=== PATIENT | male | born 1970 | race Caucasian/White ===

== ENCOUNTER → 2020-09-30 | Outpatient (CLI) | payer OTHER ==
[~2020-09-30] MED LIST: ACETAMINOPHEN-1 EAC1 PO; ATACAND16 MG PO; COQ-10100 MG PO; DESYREL150 MG PO; LASIX 40 MG TAB40 MG PO; LISINOPRIL-HCT1 EAC2; LISINOPRIL10 MG; OMEPRAZOLE40 MG PO; QVAR REDIHALE10.6 G1 INH; ROBAXIN500 MG PO; SPIRONOLACTONE25 MG PO; VALERIAN ROOT100 MG; VIAGRA50 MG PO
== END ==
LOC: M.MRI 08:09
PROVIDERS: ATTEND Nurse Practitioner Family
DX: R53.83 Other fatigue (principal); M62.81 Muscle weakness (generalized); Z82.0 Family history of epilepsy and other diseases of the nervous system

== ENCOUNTER → 2020-10-06 | Outpatient (CLI) | payer OTHER ==
[~2020-10-06] MED LIST changes: -ATACAND16 MG PO; -COQ-10100 MG PO; -DESYREL150 MG PO; -LASIX 40 MG TAB40 MG PO; -OMEPRAZOLE40 MG PO; -QVAR REDIHALE10.6 G1 INH; -SPIRONOLACTONE25 MG PO; -VIAGRA50 MG PO
[2020-10-06 11:46] LABS: ABSOLUTE BASOPHILS 0.1 thou/uL (0.0-0.2); ABSOLUTE EOSINOPHILS 0.2 thou/uL (0.0-0.7); ABSOLUTE MONOCYTES 0.7 thou/uL (0.0-1.2); ABSOLUTE NEUTROPHILS 5.4 thou/uL (1.6-8.1); BASOPHILS 1.5 %; EOSINOPHILS 2.8 %; HEMATOCRIT 44.7 % (42.0-52.0); HEMOGLOBIN 15.7 gm/dL (14.0-18.0); LYMPHOCYTES 23.4 %; MCH 32.3 pg (26.0-34.0); MONOCYTES 8.3 %; MPV 9.6 fl. (7.2-11.1); NUCLEATED RBCS 0 /100WBC; PLATELET COUNT* 177 thou/uL (150-400); RBC 4.85 mil/uL (4.50-6.00); WBC 8.5 thou/uL (4.0-11.0)
[2020-10-06 12:08] LABS: ALBUMIN 3.8 g/dL (3.4-5.0); ALKALINE PHOSPHATASE 96 U/L (46-116); ANION GAP 7 mmol/L (7-16); BUN 16 mg/dL (7-18); CALCIUM 8.8 mg/dL (8.5-10.1); CHLORIDE 102 mmol/L (98-107); CHOLESTEROL 174 mg/dL (<200); CO2 31 mmol/L (21-32); CREATININE 1.1 mg/dL (0.6-1.3); GLUCOSE 123 mg/dL (70-99); HDL CHOLESTEROL 37 mg/dL (>40); LDL CHOLESTEROL 97 mg/dL (<100); MAGNESIUM 1.9 mg/dL (1.8-2.4); POTASSIUM 3.7 mmol/L (3.5-5.1); SGOT 20 U/L (15-37); SGPT 57 U/L (30-65); SODIUM 140 mmol/L (136-145); TC:HDL 4.7 Ratio (Not establshd); TOTAL BILIRUBIN 0.5 mg/dL (<0.1-1.0); TOTAL PROTEIN 7.9 g/dL (6.4-8.2); TRIGLYCERIDE 203 mg/dL (<150); VLDL 41 mg/dL (<40)
[2020-10-06 12:24] LABS: SERUM ASSESSMENT Clear
[2020-10-06 21:05] LABS: T3 UPTAKE 23 % (24-39)
== END ==
LOC: M.LAB 11:21
PROVIDERS: ATTEND Internal Medicine
DX: R06.02 Shortness of breath (principal); R26.2 Difficulty in walking, not elsewhere classified; E66.01 Morbid (severe) obesity due to excess calories; I10 Essential (primary) hypertension; R29.898 Other symptoms and signs involving the musculoskeletal system

== ENCOUNTER → 2020-12-30 | Outpatient (CLI) | payer OTHER ==
[~2020-12-30] MED LIST changes: +ATACAND16 MG PO; +COQ-10100 MG PO; +DESYREL150 MG PO; +LASIX 40 MG TAB40 MG PO; +OMEPRAZOLE40 MG PO; +QVAR REDIHALE10.6 G1 INH; +SPIRONOLACTONE25 MG PO; +VIAGRA50 MG PO
== END ==
LOC: M.RAD 10:26
PROVIDERS: ATTEND Internal Medicine
DX: I10 Essential (primary) hypertension (principal); R60.9 Edema, unspecified

== ENCOUNTER → 2021-06-15 | Outpatient (CLI) | payer OTHER | LOC: M.ULTRA 10:30 | PROVIDERS: ATTEND Family Medicine | DX: N43.2 Other hydrocele (principal); I86.1 Scrotal varices; N50.812 Left testicular pain ==